=== PATIENT | female | born 1965 ===

== ENCOUNTER 2017-07-29 08:01 | Inpatient (IN) | payer BC ==
[~2017-07-29] VITALS: Ht 156.2 cm; Wt 53.5 kg
[2017-07-29] VITALS (8 sets, daily range): BP systolic 110–125; BP diastolic 62–82
--- NOTE | 2017-07-29 02:00 | Pre-op HX & Phy Repo 2 SIG ---
DATE OF ADMISSION: 07/29/2017 DATE OF PROCEDURE: 07/29/2017 HISTORY OF PRESENT ILLNESS: This is a 51-year-old white female, who is admitted to the hospital for cystoscopic evaluation, anterior-posterior repair, and bladder neck suspension for urinary incontinence. The patient had problem with cystocele and urinary incontinence back in 2007 for which, she underwent bladder neck suspension as a part of abdominal hysterectomy. The patient was doing fairly well till the last year, progressively having problem controlling her urination. The patient is admitted for surgical intervention. PAST MEDICAL HISTORY: The patient has a history of hysterectomy, bladder neck suspension, and anterior-posterior repair. On medical side, the patient has history of increased cholesterol. REVIEW OF SYSTEMS: The patient is complaining of GERD as well as stress incontinence. CURRENT MEDICATIONS: Just vitamins and supplements. PHYSICAL EXAMINATION: GENERAL: She is well developed, well nourished, in no acute distress. HEAD AND NECK: Negative. CHEST: Normal. Clear breathing sounds. HEART: Normal rhythm and sound. ABDOMEN: Soft. No organomegaly, tenderness, or mass. PELVIC: Revealed a third-degree cystocele and rectocele. BACK: No CVA tenderness. LYMPH: Negative. IMPRESSION: 1. Stress incontinence secondary to third-degree cystocele and rectocele. 2. Urge incontinence secondary to meatal stenosis. PLAN: Cystoscopic evaluation, anterior-posterior repair, and bladder neck suspension. Val Taylor M.D. DR: BECKY JOB#: [id number] CC:
[~2017-07-29 08:01] MED LIST: BIOTIN1 M1 PO; Ginseng PO; IRON325 M1 PO; MULTIVITAMINS1 EAC2 ORAL; OMEGA 3 FISH O1 EAC1 PO; Vit B12 PO
[2017-07-29] MEDS ORDERED: fentaNYL 100 mcg/2 mL IV ONE ×2 (10:19→15:11)
[2017-07-29] MEDS ORDERED: Sugammadex Sodium 200mg/2ml vial IV ONE (10:20)
[2017-07-29] MEDS ORDERED: Lidocaine 1% MPF 10mg/ml 5ml ONE (10:20)
[2017-07-29] MEDS ORDERED: Dexamethasone 4mg/ml vial ONE (10:20)
[2017-07-29] MEDS ORDERED: Midazolam 2mg/2ml Inj ONE (10:20)
[2017-07-29] MEDS ORDERED: Propofol 200mg/20ml IV ONE (10:20)
[2017-07-29] MEDS ORDERED: Zemuron 50mg/5ml Inj IV ONE (10:22)
--- NOTE | 2017-07-29 10:40 | Anethesia Preoperative Eval ---
Anesthesia Pre-op PMH/ROS General Date of Evaluation: July 29, 2017 Time of Evaluation: 10:00 Anesthesiologist: ASA Score: ASA 2 Mallampati Score Class I : Soft palate, uvula, fauces, pillars visible Class II: Soft palate, uvula, fauces visible Class III: Soft palate, base of uvula visible Class IV: Only hard plate visible Mallampati Classification: Class II Diagnosis: urinary incontnence Surgical Procedure: bladder neck suspension, A&P repair, cystoscopy Anesthesia History: none Family History: no anesthesia problems Allergies: Coded Allergies: No Known Allergies (Unverified , 07/28/17) Medications: see eMAR Past Medical History Cardiovascular: Denies: HTN, CAD, GA, valve dz, arrhythmia, other Pulmonary: Denies: asthma, COPD, YVETTE, other Gastrointestinal/Genitourinary: Denies: GERD, CRI, ESRD, other Neurologic/Psychiatric: Reports: other - h/o vertigo; Denies: dementia, CVA, depression/anxiety, TIA HEENT: Denies: cataract (L), cataract (R), glaucoma, NONDALTON (L), NONDALTON (R), other Hematology/Immune: Reports: anemia Musculoskeletal/Integumentary: Reports: DJD; Denies: OA, RA, DDD, edema, other PSxH Narrative: partial hysterectomy 2007 Anesthesia Pre-op Phys. Exam Physician Exam Last Vital Signs Date Time Temp Pulse Resp B/P (MAP) Pulse Ox O2 Delivery O2 Flow Rate FiO2 07/29/17 08:38 97.7 64 18 121/71 100 Room Air 97.7 Constitutional: NAD Cardiovascular: RRR Respiratory: CTA Gastrointestinal: S/NT/ND Airway Exam Mallampati Score: Class II MO: full ROM: full Teeth: intact Dentures: no upper, no lower Anesthesia Pre-op A/P Risk Assessment & Plan Assessment: ASA 2, okay to proceed Plan: ETGA Pre-Antibiotics Drug: ancef 1gram Given Within 1 Hr of Incision: Yes Time Given: 11:10 Guera Barber M.D. July 29, 2017 10:39
[2017-07-29] MEDS ORDERED: Lidocaine 1% 10mg/ml/Epi 0.005mg/ml 30ml vial INJ ONE (10:47)
[2017-07-29] MEDS ORDERED: Bupivacaine 0.5% Inj 30 ml vial INJ ONE (10:47)
--- NOTE | 2017-07-29 10:55 | Pre-Procedure Note/Attestation ---
Pre-Procedure Note/Attestation Complete Prior to Procedure Planned Procedure: not applicable Procedure Narrative: Cystoscopy,AP repair ,Bladder neck Suspension Indications for Procedure Pre-Operative Diagnosis: 3rd degree Cystocele Meatal Stenosis Attestation I attest that I discussed the nature of the procedure; its benefits; risks and complications; and alternatives (and the risks and benefits of such alternatives ), prior to the procedure, with the patient (or the patient's legal telesales representative). I attest that, if there was a reasonable possibility of needing a blood transfusion, the patient (or the patient's legal telesales representative) was given the [facility] standardized written summary, pursuant to the [employer] [place] Blood Safety Act ([place] Health and Safety Code # 1645, as amended). I attest that I re-evaluated the patient just prior to the surgery and that there has been no change in the patient's H&P, except as documented below: Val Taylor MD July 29, 2017 10:55
[2017-07-29] MEDS ORDERED: LR 1000ml ONE (11:00)
[2017-07-29] MEDS ORDERED: Sterile Water For Irrig 2000ml IRRIG ONE (11:00)
[2017-07-29] MEDS ORDERED: Sterile Water Irrig 1000ml IRRIG ONE ×2 (11:00→11:39)
[2017-07-29] MEDS ORDERED: Midazolam 2mg/2ml Inj IVP PRN (11:45)
--- NOTE | 2017-07-29 14:39 | Immediate Post-Op Evaluation ---
Immediate Post-Op Evalulation Immediate Post-Op Evalulation Procedure: bladder suspension, A&P repair, cystoscopy Date of Evaluation: July 29, 2017 Time of Evaluation: 14:20 IV Fluids: LR 1500ml Blood Products: 0 Estimated Blood Loss: 300ml Urinary Output: 100ml Blood Pressure Systolic: 125 Blood Pressure Diastolic: 68 Pulse Rate: 79 Respiratory Rate: 17 O2 Sat by Pulse Oximetry: 100 Temperature (Fahrenheit): 97 Pain Score (1-10): 1 Nausea: No Vomiting: No Complications none Patient Status: awake, patent, none Drug: ancef 1 gram Given Within 1 Hr of Incision: Yes - 11 Time Given: 11:10 Guera Barber M.D. July 29, 2017 14:39
--- NOTE | 2017-07-29 14:43 | Brief Operative Note ---
Immediate Post Operative Note Operative Note Pre-op Diagnosis: 3rd degree Cystocele Meatal Stenosis Procedure: Cystoscopy Urethral dilation AP repair Bladder neck suspension Post-op Diagnosis: same Post-op Diagnosis: same as pre-op Surgeon: alden Doherty MD Anesthesia: general Specimen: yes Complications: none Condition: stable Fluids: none Estimated Blood Loss: minimal Drains: none Packing: Vaginal pack Implant(s) used?: No Val Taylor MD July 29, 2017 14:43
[2017-07-29] MEDS ORDERED: LR 1000ml 1,000 ML IVLG SCH (15:00)
[2017-07-29] MEDS ORDERED: Metoclopramide 10mg/2ml Inj IVP PRN (15:08)
[2017-07-29] MEDS ORDERED: DiphenhydrAMINE 50mg/ml Inj IVP PRN (15:08)
[2017-07-29] MEDS ORDERED: Tylenol #3 tab (300mg/30mg) ORAL PRN ×2 (15:09→21:00)
[2017-07-29] MEDS: fentaNYL 100 mcg/2 mL IV PRN ×2 (15:14→15:38)
[2017-07-29] MEDS ORDERED: Ketorolac 30mg Inj IV SCH (15:15)
[2017-07-29] MEDS: Tylenol #3 tab (300mg/30mg) ORAL PRN (18:08)
--- NOTE | 2017-07-29 18:32 | 48 Hour Post Anesthesia Eval ---
Post Anesthesia Evaluation Procedure: bladder suspension, A&P repair, cystoscopy Date of Evaluation: July 29, 2017 Time of Evaluation: 16:15 Blood Pressure Systolic: 110 0: 82 Pulse Rate: 65 Respiratory Rate: 16 Temperature (Fahrenheit): 97 O2 Sat by Pulse Oximetry: 96 Airway: patent Nausea: No Vomiting: No Hydration Status: adequate Post-Anesthesia Complications: none Follow-up care needed: ready to discharge Guera Barber M.D. July 29, 2017 18:32
[2017-07-29] MEDS ORDERED: Zolpidem 5mg tab ORAL PRN (20:15)
[2017-07-30] MEDS: Tylenol #3 tab (300mg/30mg) ORAL PRN ×3 (00:12→12:49)
--- NOTE | 2017-07-30 01:15 | Operative Note - Dictated ---
DATE OF OPERATION: 07/29/2017 PROCEDURES PERFORMED: 1. Cystoscopy, urethral dilation, and fulguration of bladder. 2. Bladder neck suspension. 3. Anterior-posterior repair. PREOPERATIVE DIAGNOSES: Urinary incontinence secondary to cystocele, rectocele, and chronic cystitis and meatal stenosis. POSTOPERATIVE DIAGNOSES: Urinary incontinence secondary to cystocele, rectocele, and chronic cystitis and meatal stenosis. ANESTHESIA: General. SURGEON: Val Taylor M.D. ESTIMATED BLOOD LOSS: 100 mL. JUSTIFICATIONS: This is a 51-year-old, white female with third-degree cystocele, rectocele, and history of meatal stenosis, and chronic cystitis. PROCEDURE AND FINDINGS: The patient was placed in dorsal lithotomy position. Area was prepped and draped in usual fashion. Under direct vision, cystoscopic evaluation was carried out with #20 panendoscope and a 30-degree lens under the video camera. 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 The urethral orifices is normally positioned until there is normal configuration. At this time, with electrode on low voltage, entire trigone area was fulgurated and then the urethra was dilated up to #30 with female dilator. At this time, a #20 Castellanos catheter was inserted inside the bladder and anterior-posterior repair was done in a routine manner by initially injecting 10 mL of 1% Xylocaine with epinephrine around the meatus under the cystocele for the purposes of hemostasis and then the vaginal mucosa was dissected from the floor of the bladder and then with two stitches #0 Vicryl the two sides of the bladder were anchored to periosteum of pubic bone on each side. Then, several stitches were put in 2-0 Vicryl supporting the base of the bladder and anterior rectum and then the extra mucosa were removed and the vaginal mucosa from underneath of urethra to the anterior wall of the rectum were all sutured with interrupted 2-0 Vicryl. Then after a vaginal pack which was soaked with Betadine and KY jelly was inserted for the purpose of supporting and the patient discharged from the operating room after receiving 1 gram of Ancef. She remained stable throughout the procedure and lost about 100 mL of blood. Val Taylor M.D. DR: BECKY JOB#: [id number] CC:
[2017-07-30] MEDS ORDERED: Levofloxacin 500mg tab ORAL SCH ×2 (13:00→18:00)
[2017-07-30] MEDS ORDERED: Milk of Magnesia 30ml Ud ORAL SCH (13:00)
[2017-07-30] MEDS ORDERED: Docusate 100mg cap ORAL SCH (13:00)
[2017-07-30] MEDS ORDERED: LEVAQUIN500 MG ORAL (17:17)
[2017-07-30 17:34] LABS: HEMATOCRIT 38.2 % (37.0-47.0); HEMOGLOBIN 13.5 G/DL (12.0-16.0); MEAN CORPUSCULAR VOLUME 92 FL (80-99); PLATELET COUNT 235 K/UL (150-450); RED BLOOD COUNT 4.15 M/UL (4.20-5.40); RED CELL DISTRIBUTION WIDTH 11.5 % (11.6-14.8); WHITE BLOOD COUNT 14.7 K/UL (4.8-10.8)
[2017-07-30 20:00] VITALS: BP 108/64
[2017-07-30] MEDS ORDERED: Ondansetron ODT 8mg tab ORAL ONE (22:15)
[2017-07-31 05:04] VITALS: BP 112/62
[2017-07-31 07:17] LABS: ANION GAP 9 mmol/L (5-15); BLOOD UREA NITROGEN 12 mg/dL (7-18); CALCIUM 8.8 MG/DL (8.5-10.1); CARBON DIOXIDE 26 MMOL/L (21-32); CHLORIDE 107 MMOL/L (98-107); CREATININE 0.8 MG/DL (0.55-1.30); POTASSIUM 3.8 MMOL/L (3.5-5.1); SODIUM 142 MMOL/L (136-145)
[2017-07-31 08:00] VITALS: BP 92/50
[2017-07-31 10:18] VITALS: BP 106/60
[2017-07-31] MEDS ORDERED: Meclizine 25mg tab ORAL ONE (11:30)
[2017-07-31 11:54] LABS: BASOPHILS % (AUTO) 0.5 % (0.0-2.0); EOSINOPHILS % (AUTO) 1.2 % (0.0-3.0); HEMATOCRIT 39.9 % (37.0-47.0); HEMOGLOBIN 13.2 G/DL (12.0-16.0); LYMPHOCYTES % (AUTO) 11.7 % (20.0-45.0); MEAN CORPUSCULAR VOLUME 94 FL (80-99); MONOCYTES % (AUTO) 4.8 % (1.0-10.0); NEUTROPHILS % (AUTO) 81.8 % (45.0-75.0); PLATELET COUNT 239 K/UL (150-450); RED BLOOD COUNT 4.23 M/UL (4.20-5.40); RED CELL DISTRIBUTION WIDTH 11.4 % (11.6-14.8); WHITE BLOOD COUNT 9.5 K/UL (4.8-10.8)
[2017-07-31 12:00] VITALS: BP 104/60
== END 2017-07-31 14:00 | disposition home or self-care (01) | DRG 664 ==
LOC: SUR 08:01 → 3E 16:14 → OBSVTOIN 07-31 00:21
PROC: 0TSC0ZZ Reposition Bladder Neck, Open Approach (ICD-10-PCS; principal; 2017-07-29 10:30)
PROC: 0T7D8ZZ Dilation of Urethra, Via Natural or Artificial Opening Endoscopic (ICD-10-PCS; principal; 2017-07-29 10:30)
PROC: 0T5B8ZZ Destruction of Bladder, Via Natural or Artificial Opening Endoscopic (ICD-10-PCS; principal; 2017-07-29 10:30)
PROC: 0JQC3ZZ Repair Pelvic Region Subcutaneous Tissue and Fascia, Percutaneous Approach (ICD-10-PCS; principal; 2017-07-29 10:30)
DX: N30.20 Other chronic cystitis without hematuria (principal); N39.46 Mixed incontinence; N81.10 Cystocele, unspecified; N81.6 Rectocele; N35.9 Urethral stricture, unspecified; Z90.710 Acquired absence of both cervix and uterus; K21.9 Gastro-esophageal reflux disease without esophagitis
CPT/HCPCS: 36415; 80048; 85007; 85025; 87081; 94003; 94150; G0378; J2250; J2405